=== PATIENT | male | born 1985 | race Caucasian/White ===

== ENCOUNTER 2016-12-19 12:02 | Emergency (ER) | payer MEDICAID ==
[2016-12-19 12:15] VITALS: RESP 18
[2016-12-19 12:16] VITALS: TEMP 98.6
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
[2016-12-19 13:50] LABS: COLOR YELLOW; LEUKOCYTE ESTERASE,URINE NEGATIVE (NEGATIVE); NITRITE,URINE NEGATIVE (NEGATIVE)
[2016-12-19 14:23] VITALS: BP 145/87; PULSE 89; O2SAT 95
== END 2016-12-19 14:23 | disposition home or self-care (01) ==
DX: R39.11 Hesitancy of micturition (principal); F17.200 Nicotine dependence, unspecified, uncomplicated